=== PATIENT | female | born 1980 | race Caucasian/White ===

== ENCOUNTER 2017-02-23 21:29 | Emergency (ER) | payer MEDICAID ==
[~2017-02-23] VITALS: Ht 144.8 cm; Wt 65.1 kg
[2017-02-23 21:32] VITALS: BP 128/58
--- NOTE | 2017-02-23 22:23 | NUR ---
TO ER BED 6
--- NOTE | 2017-02-23 22:32 | NUR ---
36 Y/O F W/C/O PELVIC PAIN WHICH RADIATES TO LOWER BACK AND FREQUENT/URGENCY WITH URINATION X 4 WKS. DENIES ANY FEVER, NAUSEA OR CHILLS.NO S/S OF DISTRESS NOTED, ER MADE AWARE.
--- NOTE | 2017-02-23 22:37 | NUR ---
FEMALE CHAPERONED FOR DR. THOMPSON DURING PATIENT EXAM
[2017-02-23] MEDS ORDERED: KETOROLAC 30 MG/ML VIAL IM ONE (22:45)
[2017-02-24 01:40] VITALS: BP 124/75
== END 2017-02-24 01:40 | disposition home or self-care (01) ==
LOC: MED 21:29
DX: N83.209 Unspecified ovarian cyst, unspecified side (principal); R10.2 Pelvic and perineal pain
CPT/HCPCS: 76830; 81002; 81025; 96372; 99284; J1885